=== PATIENT | female | born 1985 | race Caucasian/White ===

== ENCOUNTER → 2017-06-28 16:02 | Outpatient (CLI) | payer OTHER, SELFPAY ==
[2017-06-28 20:10] LABS: Chlamydia Trachomatis by PCR Negative (Negative); Neisserai gonorrhoeae by PCR Negative (Negative); Probe Check PASS; Sample Adequacy Control PASS; Specimen Processing Control PASS
[2017-07-01 12:57] LABS: HPV Reflexed? NOT INDICATED
== END ==
PROVIDERS: Visit Provider Obstetrics & Gynecology
DX: Z12.4 Encounter for screening for malignant neoplasm of cervix (principal); Z11.3 Encounter for screening for infections with a predominantly sexual mode of transmission
CPT/HCPCS: 87491; 87591; 88175; G0145

== ENCOUNTER → 2017-07-01 11:35 | Outpatient (CLI) | payer OTHER, SELFPAY ==
[2017-07-01 12:51] LABS: Absolute Lymphocyte Count 1.63 X10^3/ul (0.83-4.51); Absolute Neutrophil Count 7.1 X10^3/uL (2.0-7.7); Basophil# 0.02 X10^3/uL; Basophil% 0.2 % (0-1); Eosinophil# 0.08 X10^3/uL; Eosinophils% 0.9 % (0-5); Hematocrit 35.7 % (37-47); Hemoglobin 11.8 g/dl (12.0-15.0); Lymphocyte # 1.63 X10^3/ul (4.0); Lymphocyte % 17.5 % (19-41); Mean Corp Hgb Conc 33.1 g/gl (32-36); Mean Corpuscular Volume 90.8 fL (81-99); Mean Platelet Vol. 9.4 fl (6.2-12.0); Monocyte% 5.4 % (0-10); Neutrophil # 7.09 X10^3/uL (2.7-7.7); Neutrophil % 75.9 % (47-70); Platelet Count 374 K/mm3 (150-450); RBC Distribution Width CV 13.3 % (11.6-14.6); RBC Distribution Width SD 43.8 fl (35.1-43.9); Red Blood Count 3.93 M/mm3 (4.2-5.4); White Blood Count 9.3 K/mm3 (4.4-11.0)
[2017-07-01 13:17] LABS: Thyroid Stim Hormone (TSH) 0.69 uIU/mL (0.358-3.74)
[2017-07-01 14:42] LABS: Color, Urine Straw (Yellow); Glucose, Dipstick Normal (Normal); Ketone-Dipstick Negative (Negative); Leukocyte Esterase-Dipstick Negative /ul (Negative); Nitrite-Dipstick Negative (Negative); Occult Blood-Urine Negative /ul (Negative); Protein-Dipstick Negative (Negative); Urine Bilirubin Dipstick Negative (Negative); Urine Clarity Clear (Clear); Urine Urobilinogen Normal (Normal)
[2017-07-02 02:34] LABS: Prenatal RPR NONREACTIVE (NONREACTIVE)
[2017-07-02 09:27] LABS: HIV - WCH Non-Reactive (Nonreactive); Rubella IgG 16.9 IU/mL
[2017-07-02 11:30] LABS: HEPATITIS B SURFACE AG Negative (Negative); Hep C Antibodies <0.1 s/co ratio (0.0-0.9)
== END ==
PROVIDERS: Visit Provider Obstetrics & Gynecology
DX: Z34.82 Encounter for supervision of other normal pregnancy, second trimester (principal)
CPT/HCPCS: 36415; 81002; 84443; 85025; 86703; 86762; 86803; 87340

== ENCOUNTER → 2017-10-20 13:38 | Outpatient (CLI) | payer OTHER, SELFPAY ==
[2017-10-20 16:43] LABS: Group B Strep DNA By PCR Negative (Negative); Internal Control PASS; Probe Check PASS; Specimen Processing Control PASS
== END ==
PROVIDERS: Visit Provider Obstetrics & Gynecology
DX: Z36.85 Encounter for antenatal screening for Streptococcus B (principal)
CPT/HCPCS: 87081; 87653

== ENCOUNTER 2017-10-25 20:13 | Inpatient (IN) | payer SELFPAY, OTHER ==
[2017-10-25 17:56] VITALS: BMI 29.9
[2017-10-25 18:30] LABS: Hematocrit 37.9 % (37-47); Hemoglobin 12.9 g/dl (12.0-15.0); Mean Corpuscular Hgb 30.5 pg (27.0-32.0); Mean Corpuscular Volume 89.6 fL (81-99); Platelet Count 325 K/mm3 (150-450); RBC Distribution Width CV 12.6 % (11.6-14.6); RBC Distribution Width SD 40.9 fl (35.1-43.9); Red Blood Count 4.23 M/mm3 (4.2-5.4); White Blood Count 16.1 K/mm3 (4.4-11.0)
[2017-10-25 18:31] LABS: Scan Indicated on CBC? Y/N NO
[2017-10-25 18:34] LABS: Prothrombin Time (Protime)PT. 13.1 SECONDS (11.7-14.9)
[2017-10-25 18:35] LABS: Partial Thromboplast Time 24.5 Seconds (24.1-36.2)
[2017-10-25 18:59] LABS: AST(SGOT) 13 U/L (15-37); Alanine Aminotransfer ALT/SGPT 18 U/L (13-56); Creatinine, Serum 0.54 mg/dL (0.55-1.02); EST Glomerular Filtration Rate 138 mL/min (>60); Est Glom Filt Rate - Afr Amer 167 mL/min (>60); Estimated Creatinine Clearance 134.58 ml/min; Uric Acid 4.1 mg/dL (2.6-6.0)
[2017-10-25 20:00] LABS: Protein, Urine (Random) < 6.0 mg/dL (<11.9); Protein:Creat Ratio 205 mg/g CRE (0-200)
[2017-10-25] MEDS: miSOPROStol 25 MCG TABLET PO (21:34)
[2017-10-26] MEDS: miSOPROStol 25 MCG TABLET PO ×2 (01:30→05:39)
[2017-10-26] MEDS: 0.9% Saline Lock 10 ML Syringe IV (08:07)
[2017-10-26] MEDS: Lactated Ringers 1,000 ML 50 ML IV ×2 (08:07→08:56)
--- NOTE | 2017-10-26 08:12 | PCM.PN.BLA ---
Progress Note LABOR PROGRESS NOTE 5 cm after cytotec Planning epidural. Diet : labor liquids AROM after epidural. EFM 130-140s avg variability category I tracing. Occasional variable. UCs q 6-7 min A/P: induction for PIH. BPs stable when lying down, labile with position changes, sitting. Continue induction with AROM after epidural in effect. Anticipate .
[2017-10-26] MEDS: fentaNYL-bupivacaine (epidural) 100 ML BAG EPIDURAL (08:46)
[2017-10-26] MEDS: Oxytocin 30 units/NS 500 ml 30 UNITS/500 ML IV.SOLN 334 UNITS IV (09:51)
[2017-10-26] MEDS: Oxytocin 30 units/NS 500 ml 30 UNITS/500 ML IV.SOLN 167 UNITS IV (10:24)
--- NOTE | 2017-10-26 11:49 | PCM.OB.VAG ---
- Problem List (1) 37 or more weeks gestation of Status: Acute (2) induced hypertension Status: Acute Vaginal Delivery Maternal Presentation: Medically Indicated Induction 37 4/7 wk with PIH Induction Method of Induction: Amniotomy, Cytotec Medical Reason for Induction: Gestational Hypertension Amniotic Membrane Rupture Type: Artificial Amniotic Fluid Description: Clear Final RAYMOND: 11/11/17 Gestational age: 37 Weeks and 5 Days Date of Procedure: 10/26/17 Pre-Operative Diagnosis: 37 4/7 wk induction PIH Post-Operative Diagnosis: 37 5/7 wk induction PIH Surgery/ Procedure Performed: Spontaneous Vaginal Delivery Type of Anesthesia: Epidural Description of Procedure: of a martinez viable female over intact perineum to 1st perineal laceration. Head delivered RIGOBERTO. No nuchal cord. Shoulders delivered easily. Baby to maternal abdomen. Bulb suctioned. delayed cord clamping. Cord clamped x two and cut. PP exam; 1st deg laceration, hemostatic at posterior perineum. no other lacerations no repair. Placenta delivered by spont expulsion, 3V cord, normal appearing Thin cord. EBL 350 cc Pt and tolerated delivery well. to recovery, stable condition [employer] counts correct. Presentation: Vertex Placental Delivery Description: Spontaneous Placenta Disposition: [facility] Cord Vessel Description: 3 Vessels Nuchal Cord Compression: Without compression Cord Entanglement: None Estimated Blood Loss: 350 Infant A gender: Female (1 minute): 8 (5 minute): 9 Episiotomy Description: None Laceration: Perineal Extension/lac, 1st degree Medications given after delivery: IV Pitocin Complications: None
--- NOTE | 2017-10-26 11:54 | PCM.DCVAG ---
Discharge Diet: No Restrictions Discharge Activity: May Shower, May Take a Tub Bath May resume sexual activity in: 4-6 weeks Additional Activity Instructions:: Nothing in the vagina for 4-6 weeks. You may return to work/school in 6 weeks. Additional Instructions: If you experience any of the following, contact your healthcare provider. Bleeding that soaks a pad every hour for 2 hours Fever 100.4 or higher Unrelieved abdominal pain Problems urinating (including inability to urinate or burning while urinating). Visual changes Severe headache Flu-like symptoms Pain or redness in one of both of your breasts Pain, warmth, tenderness or swelling in your legs, especially the calf area Frequent nausea and vomiting Symptoms of depression or anxiety If you experience any of the following, call 911 or go to the nearest Emergency Room. Chest pain Problems breathing Seizure activity Partial or complete paralysis of a body part, slurred speech, weakness or drooping of the face, or a sudden inability to walk or hold your balance Allergies/Adverse Reactions: Allergies No Known Allergies Allergy (Verified 06/22/16 08:51) Medications to take at Discharge Vits [Prenatabs FA ] 1 tablet PO BID 04/27/13 Magnesium 1 tab PO DAILY 10/25/17 Please Follow Up With: Michael Ruggiero MD - [phone] When: Call to make an appointment with your doctor in 6 weeks. If you had elevated Blood Pressure or 4th degree laceration you will need to be seen in 2 weeks. Test Results: Test results from this visit will be discussed in further detail at your follow-up appointment, if applicable.
[2017-10-26 12:13] VITALS: BP 154/85; PULSE 76; RESP 18; TEMP 36.1
[2017-10-26] MEDS: NIFEdipine 30 MG Tablet PO ×2 (14:05)
[2017-10-26 16:00] VITALS: BP 119/69; PULSE 81; RESP 18; TEMP 36.3; O2SAT 100
[2017-10-26 19:45] VITALS: BP 160/94; PULSE 83; RESP 16; TEMP 36.6; O2SAT 95
[2017-10-27] VITALS: BP 120/77; PULSE 79; RESP 16; TEMP 36.2; O2SAT 97
[2017-10-27 04:00] VITALS: BP 139/91; PULSE 78; RESP 16; TEMP 36.5; O2SAT 98
[2017-10-27 07:55] VITALS: BP 146/93; PULSE 77; RESP 16; TEMP 36.3; O2SAT 97
--- NOTE | 2017-10-27 09:02 | PCM.PN.OB ---
Patient Problems: Active and Suspected Problems 37 or more weeks gestation of (Acute) induced hypertension (Acute) Subjective: Patient without complaints. Breast-feeding going well. Denies any PIH symptoms. Wants to go home later today. - Physical Exam Vital Signs Temp Pulse Resp BP Pulse Ox 97.4 F L 77 16 146/93 H 97 10/27/17 07:55 10/27/17 07:55 10/27/17 07:55 10/27/17 07:55 10/27/17 07:55 Oxygen Delivery Method Room Air Weight: 180 lb 5.41 oz Body Mass Index (BMI) 29.9 Intake and Output for Last 24 Hours 10/25/17 10/26/17 10/27/17 23:59 23:59 23:59 Intake Total 500 / 500 2273 / 2273 Output Total 350 / 350 750 / 750 Balance 150 / 150 1523 / 1523 Medical Necessity - Tobacco Use Smoking Status: Never smoker Assessment/Plan All Active Problems 37 or more weeks gestation of (Acute) induced hypertension (Acute) Doing well day #1 status post . Blood pressures adequately controlled with Procardia XL 30 mg daily. Will release to home with routine instructions if baby is able to be released. Modified bedrest at home with monitoring of blood pressures. Call in 1-2 weeks for update on blood pressures.
[2017-10-27] MEDS: NIFEdipine 30 MG Tablet PO (09:23)
[2017-10-27] MEDS: Prenatal Vits Tablet 1 TABLET PO (12:35)
[2017-10-27 19:55] VITALS: BP 148/92; PULSE 81; RESP 18; TEMP 36.3
[2017-10-27 20:00] VITALS: BP 148/92; PULSE 81; RESP 18; TEMP 36.3
--- NOTE | 2017-10-27 20:18 | NURSING ---
discontinued on 10/25/17 pm
== END 2017-10-27 20:05 | disposition home or self-care (01) | DRG 775 ==
LOC: WPOUT 20:13
PROVIDERS: Obstetrics & Gynecology; Admitting Provider Obstetrics & Gynecology; Visit Provider Obstetrics & Gynecology
DX: O13.4 Gestational [pregnancy-induced] hypertension without significant proteinuria, complicating childbirth (principal); O70.0 First degree perineal laceration during delivery; Z37.0 Single live birth; Z3A.37 37 weeks gestation of pregnancy
CPT/HCPCS: 59025; 59050; 82565; 82570; 84156; 84450; 84460; 84550; 85027; 85610; 85730; 86850; 86900; 99218; J7120; A4216; G0378

== ENCOUNTER → 2020-03-04 | Outpatient (CLI) | payer OTHER, SELFPAY | END | disposition home or self-care (01) | LOC: LABSPEC 17:05 | PROVIDERS: Visit Provider Obstetrics & Gynecology | DX: Z12.4 Encounter for screening for malignant neoplasm of cervix (principal) | CPT/HCPCS: 88175; G0145 ==

== ENCOUNTER → 2021-07-24 | Outpatient (CLI) | payer OTHER, SELFPAY ==
[2021-07-30 10:28] LABS: HPV Reflexed? NOT INDICATED
== END | disposition home or self-care (01) ==
LOC: LABSPEC 11:14
PROVIDERS: Visit Provider Obstetrics & Gynecology
DX: Z12.4 Encounter for screening for malignant neoplasm of cervix (principal)
CPT/HCPCS: 88175; G0145